=== PATIENT | female | born 1975 | race American Indian/Alaskan Native ===

== ENCOUNTER 2016-08-18 08:19 | Emergency (ER) | payer BC ==
[2016-08-18] MEDS ORDERED: TORADOL IM ONE (10:28)
[2016-08-18] MEDS ORDERED: VALIUM PO ONE (10:28)
--- NOTE | 2016-08-18 11:03 | XRay Report ---
Right shoulder 3 views: History: Pain. Findings: The a.c. joint and glenohumeral joint appears normal. No fracture, dislocation or soft tissue calcification. Impression: Essentially negative right shoulder.
[2016-08-18] MEDS ORDERED: CATAPRES PO ONE (11:39)
[2016-08-18 13:25] VITALS: BP 148/86
--- NOTE | 2016-08-18 13:32 | Emergency Department Report ---
Entered by MICHELLE STARR, acting as scribe for DANIEL LAGUNAS PA. Upper Extremity - HPI Chief Complaint: Extremity Injury, Upper Stated Complaint: RT UPPER ARM PAIN Time Seen by Provider: 08/18/16 10:20 Upper Extremity: Right Shoulder (pain) Occurred When: >5 Days (2 weeks ago, worse today) Mechanism: Other (unknown, patient denies repetitive reaching movements, acute trauma or fall) Severity: severe (8/10 pain, constant and cramping) Symptoms: Yes Pain with Movement, Yes Limited Range of Movement, No Deformity, No Numbness, No Weakness, No Swelling, No Bruising/Ecchymosis, No Laceration or Abrasion Other History: 41 y/o female presents to the ED c/o right shoulder area pain beginning 2 weeks ago and worsening today. The pain is characterized as constant and aching, 8/10 severity. The symptoms are aggravated by lying on the right side and movement, with no alleviation from OTC aleve. Associated symptoms of shaking of the right upper extremity with writing, but she denies numbness and weakness of the right upper extremity. She denies repetitive arm raising and denies acute fall or trauma. Positive for history of hypertension. Patient states that she is currently taking nifedipine, Tenoretic and hydralazine. With her last dose of nifedipine and Tenoretic being at 0400 hours today. She states her blood pressure is usually elevated to approximately 220/120 and she has an appointment with her primary care in a week to discuss medication dosage. Patient denies chest pain, shortness of breath, visual changes, dizziness, confusion, headache. ED Review of Systems ROS: Stated complaint: RT ARM PAIN Other details as noted in HPI Comment: All other systems reviewed and negative Musculoskeletal: other (right shoulder pain, radiates down to the right elbow, shaking of the right extremity with writing) Neurological: denies: weakness, numbness ED Past Medical Hx - Past Medical History Hx Hypertension: Yes Hx GERD: Yes Hx Headaches / Migraines: Yes Additional medical history: GERD - Surgical History Hx Cholecystectomy: Yes Hx Appendectomy: Yes Additional Surgical History: trach s/p ruptured appendex - Social History Smoking Status: Never Smoker Substance Use Type: None - Medications Home Medications: Home Medications Medication Instructions Recorded Confirmed Last Taken Type Atenolol/Chlorthalidone [Tenoretic 1 tab PO QDAY 08/18/16 08/18/16 08/18/16 History 100-25] NIFEdipine [Nifedipine ER] 90 mg PO DAILY 08/18/16 08/18/16 08/18/16 History Naproxen [Naprosyn] 500 mg PO BID #30 tablet 08/18/16 Unknown Rx methOCARBAMOL [Robaxin TAB] 500 mg PO BID #20 tab 08/18/16 Unknown Rx Upper Extremity Exam - Exam General: Vital signs noted. No distress. Alert and acting appropriately. GENERAL : The patient is well-developed and well-nourished, Patient is in NAD HEAD: Normocephalic. Atraumatic. CHEST/LUNGS: Clear to auscultation throughout. HEART/CARDIOVASCULAR: Regular rate and rhythm. No murmurs, rubs, or gallops. ABDOMEN: Abdomen is soft, nontender. No guarding or rebound tenderness. NEURO: ALert and oriented x3. Symmetrical sensation. Shoulder Exam: Yes Shoulder Tenderness (right shoulder joint), No Normal Range of Motion in Shoulder (limited due to pain, patient wearing sling on the RUE on arrival) Elbow: Yes Normal Range of Motion in Elbow (right elbow) Wrist: Yes Normal ROM in Wrist (right wrist) Hand: Yes Normal ROM in Digit(s) (right hand digits) CMS Exam: Yes Normal Distal Pulses (right distal pulses intact), Yes Normal Capillary Refill (capillary refill less than two seconds), Yes Normal Distal Sensation (bilateral upper extremities) ED Course Vital Signs 08/18/16 08:23 Temperature 98.2 F Pulse Rate 100 H Respiratory 19 Rate Blood Pressure 196/106 O2 Sat by Pulse 100 Oximetry - Reevaluation(s) Reevaluation #1: 08/18/16 11:43 Discussed patient's history and physical with Dr. Coyle. He agrees with administration of clonidine 0.2mg and recommended against cardiac work up at this time. ED Medical Decision Making - Lab Data Vital Signs 08/18/16 08/18/16 08/18/16 08:23 10:56 11:23 Temperature 98.2 F 98.2 F Pulse Rate 100 H 93 H Respiratory 19 20 18 Rate Blood Pressure 196/106 Blood Pressure 181/127 [Left] O2 Sat by Pulse 100 98 Oximetry 08/18/16 08/18/16 11:45 13:24 Temperature Pulse Rate 93 H 89 Respiratory 18 Rate Blood Pressure 181/127 Blood Pressure 148/86 [Left] O2 Sat by Pulse 100 Oximetry - Medical Decision Making 41 y/o female presents complaining of right shoulder area pain beginning 2 weeks ago and worsening today. Patient reports symptomatic relief post Valium and Toradol. She was given clonidine 0.2 mg for her elevated blood pressure level, her blood pressure is 148/86 post medication. Emphasized the importance of follow up with primary care physician and explained to patient that uncontrolled hypertension can lead to long-term complications of hypertension/ elevated blood pressure including stroke, heart attack, disability, , paralysis, permanent loss of quality of life. Patient expressed understanding. Referral for orthopedic has been provided. Patient is in no acute distress at this time. She will be discharged home and is encouraged to follow up with a primary care provider. She will be sent home on Robaxin, naproxen and is encouraged to return to the emergency room for any worsening symptoms. Critical care attestation.: If time is entered above; I have spent that time in minutes in the direct care of this critically ill patient, excluding procedure time. ED Disposition Clinical Impression: Shoulder pain Qualifiers: Laterality: right Chronicity: acute Qualified Code(s): M25.511 - Pain in right shoulder HTN (hypertension) Qualifiers: Hypertension type: essential hypertension Qualified Code(s): I10 - Essential ( primary) hypertension Disposition: DISCHARGED TO HOME OR SELFCARE Is pt being admited?: No Does the pt Need Aspirin: No Condition: Stable Instructions: Shoulder Sprain (ED), Hypertension (ED), Arthralgia (ED) Additional Instructions: Follow-up with primary care provider. Return to the emergency department if symptoms worsen. Prescriptions: methOCARBAMOL [Robaxin TAB] 500 mg PO BID #20 tab Naproxen [Naprosyn] 500 mg PO BID #30 tablet Referrals: PRIMARY CARE, [Primary Care Provider] - 3-5 Days JCARLOS YOU MD [Staff Physician] - 3-5 Days SURAJ LUCAS MD [Staff Physician] - 3-5 Days Forms: Work/School Release Form(ED) Time of Disposition: 11:15 This documentation as recorded by the RO hawkins REBEKAH,accurately reflects the service I personally performed and the decisions made by ,DANIEL LAGUNAS PA.
== END 2016-08-18 14:07 | disposition home or self-care (01) ==
LOC: ED 08:19
DX: M25.511 Pain in right shoulder (principal); I10 Essential (primary) hypertension; K21.9 Gastro-esophageal reflux disease without esophagitis; G43.909 Migraine, unspecified, not intractable, without status migrainosus; Z90.49 Acquired absence of other specified parts of digestive tract
CPT/HCPCS: 73030; 96372; 99283; J1885

== ENCOUNTER 2016-12-25 18:18 | Emergency (ER) | payer BC ==
[2016-12-25 18:40] VITALS: BP 156/100
[2016-12-25] MEDS ORDERED: TYLENOL PO ONE (18:42)
--- NOTE | 2016-12-25 19:10 | Emergency Department Report ---
Entered by HA CRYSTAL, acting as scribe for DAVIDSON CURRAN PA. Chief Complaint: Headache Stated Complaint: HEADACHE/POSS ELEVATED BP Time Seen by Provider: 12/25/16 18:44 - HPI History of Present Illness: Pt c/o 11/11, sharp gradually worsening posterior headache for 2 weeks. Pt states she was seen by her PCP last week and he added clonidine back to her medication regime to control her headache and blood pressure. Notes the medication is not relieving her headache Reports fatigue. Denies neck pain and neck stiffness. Denies chest pain and SOB. Notes she had headache, chest pain, and SOB, and was seen by her PCP who states she had an elevated blood pressure. Denies visual disturbances. Denies nausea and vomiting. PCP is Dr. Parker JETT 12/16/2016 - ROS Review of Systems: All system are negative unless stated in HPI above. - Exam Vital Signs: Vital Signs 12/25/16 18:33 Temperature 98.6 F Pulse Rate 80 Respiratory 16 Rate Blood Pressure 156/100 O2 Sat by Pulse 97 Oximetry Physical Exam: General: well nourished, well developed, 41 year old female in no acute distress and nontoxic in appearance Head: normocephalic, atraumatic. No abrasions, contusions, or lacerations Neck: Supple, no C-spine tenderness, no tracheal deviation. Nontender to palpation. no adenopathy Lungs: Clear to auscultation bilaterally, no rhonchi, wheezes, or rales. Normal work of breathing. No use of accessory muscles Extremities: No CCE. +2 pulses. No neurovascular compromise. No lower extremity swelling or pain. Cardiovascular: S1-S2, regular rate, regular rhythm. No murmurs. Mini-Neuro: No nystagmus. No facial drooping. Negative Romberg. Negative pronator drift. Alert and oriented x 3. Normal gait. Speech is clear and fluid MSE screening note: Focused history and physical exam performed. Due to findings the following was ordered: see below ED Medical Decision Making - Medical Decision Making MDM: Patient screened by provider in triage area. Appropriate protocol initiated. Patient to be seen by MD on main ED side. Patient given Tylenol 975 mg by mouth in triage for headache ED Disposition for MSE Condition: Stable This documentation as recorded by the scribe,HA CRYSTAL,accurately reflects the service I personally performed and the decisions made by me,DAVIDSON CURRAN PA.
[2016-12-25 19:15] LABS: Hematocrit 39.6 % (30.3-42.9); Hemoglobin 12.8 gm/dl (10.1-14.3); Mean Corpuscular HGB Conc 32 % (30-34); Mean Corpuscular Hemoglobin 28 pg (28-32); Mean Corpuscular Volume 86 fl (79-97); Platelet Count 382 K/mm3 (140-440); Red Blood Count 4.61 M/mm3 (3.65-5.03); Red Cell Distribution Width 15.9 % (13.2-15.2); White Blood Count 12.9 K/mm3 (4.5-11.0)
[2016-12-25 19:36] LABS: INR 0.95 (0.87-1.13)
[2016-12-25 19:37] LABS: Partial Thromboplastin Time 30.1 Sec. (24.2-36.6)
[2016-12-25 19:42] LABS: Erythrocyte Sedimentation Rate 17 mm/Hr (0-20)
[2016-12-25 19:51] LABS: Alanine Aminotransferase 12 units/L (7-56); Albumin 4.3 g/dL (3.9-5); Albumin/Globulin Ratio 1.2 %; Alkaline Phosphatase 181 units/L (35-129); Anion Gap 18 mmol/L; BUN/Creatinine Ratio 22.85; Blood Urea Nitrogen 16 mg/dL (7-17); Calcium 9.4 mg/dL (8.4-10.2); Carbon Dioxide 27 mmol/L (22-30); Chloride 95.4 mmol/L (98-107); Glucose 109 mg/dL (65-100); Potassium 4.1 mmol/L (3.6-5.0); Sodium 136 mmol/L (137-145); Total Protein 7.9 g/dL (6.3-8.2)
[2016-12-25 20:02] LABS: Basophils % (Manual) 0 % (0.0-1.8); Blastocytes % (Manual) 0 %
[2016-12-25 20:03] LABS: Anisocytosis 1+; Large Platelets Few; Platelet Estimate Consistent w Auto
[2016-12-25 20:04] LABS: Diff Status Complete
[2016-12-25 20:09] LABS: Bacteria,Urine 1+ /HPF (Negative); Bilirubin,Urine NEG (Negative); Blood,Urine SM (Negative); Ketones,Urine NEG (Negative); Leukocyte Esterase,Urine LG (Negative); Mucus,Urine 2+ /HPF; Nitrite,Urine NEG (Negative); Urobilinogen,Urine < 2.0 mg/dL (<2.0)
--- NOTE | 2016-12-25 20:46 | Cat Scan Report ---
FINAL REPORT EXAM: CT HEAD/BRAIN WO CON HISTORY: Headache TECHNIQUE: CT head without contrast PRIORS: None. FINDINGS: No acute intra-axial or extra-axial hemorrhage is identified. There is no evidence of midline shift or mass effect. The ventricles and sulci are within normal limits. Causey-white matter differentiation is intact. No acute parenchymal abnormalities seen. Bony calvarium is grossly intact. Visualized portions of the mastoids and paranasal sinuses are unremarkable. IMPRESSION: Negative CT head
== END 2016-12-25 20:44 | disposition left against medical advice (07) ==
LOC: ED 18:18
DX: R51 Headache (principal); R07.9 Chest pain, unspecified; R06.02 Shortness of breath; Z53.21 Procedure and treatment not carried out due to patient leaving prior to being seen by health care provider
CPT/HCPCS: 36415; 70450; 80053; 81001; 81025; 85007; 85025; 85610; 85652; 85730

== ENCOUNTER 2017-05-05 12:31 | Emergency (ER) | payer BC ==
[2017-05-05 14:44] LABS: Basophils % (Auto) 0.4 % (0.0-1.8); Eosinophils % (Auto) 2.1 % (0.0-4.3); Mean Corpuscular HGB Conc 32 % (30-34); Mean Corpuscular Hemoglobin 27 pg (28-32); Mean Corpuscular Volume 86 fl (79-97); Platelet Count 360 K/mm3 (140-440); Red Blood Count 4.45 M/mm3 (3.65-5.03); Red Cell Distribution Width 16.3 % (13.2-15.2); White Blood Count 11.1 K/mm3 (4.5-11.0)
[2017-05-05 15:02] LABS: Anion Gap 21 mmol/L; BUN/Creatinine Ratio 14; Blood Urea Nitrogen 7 mg/dL (7-17); Calcium 8.9 mg/dL (8.4-10.2); Carbon Dioxide 25 mmol/L (22-30); Chloride 97.4 mmol/L (98-107); Glucose 160 mg/dL (65-100); Potassium 4.4 mmol/L (3.6-5.0); Sodium 139 mmol/L (137-145)
[2017-05-05] MEDS ORDERED: NORMODYNE IV ONE (17:04)
[2017-05-05] MEDS ORDERED: PERCOCET 5/325 PO ONE (17:05)
--- NOTE | 2017-05-05 17:15 | Emergency Department Report ---
HPI - General Chief Complaint: Headache Time Seen by Provider: 05/05/17 16:47 - HPI HPI: This is a 41-year-old [place] female presents to the emergency department with 2 complaints. First, the patient says that she had a 10 minute period of chest pain last night but that has resolved and has not returned. Prior to chest pain she had some nausea and vomiting but that also has resolved. She felt as if her heart was racing and was having some palpitations at that time as well. Her second complaint is a headache that has been going on for the past week. She does have a history of migraines but says that this feels slightly different as this headache is affecting mostly the posterior half of her head. She tried her migraine medication without any relief. She also has noticed that she has had some elevated blood pressures recently despite being compliant with her medication. No recent travel or sick contacts at home. She has a past medical history of GERD, migraines, hypertension. She has a surgical history of appendectomy and cholecystectomy. She denies any tobacco or illicit drug use or abuse. Despite the headache, the patient denies any vision change, slurred speech or any neurological deficits. ED Past Medical Hx - Past Medical History Hx Hypertension: Yes Hx GERD: Yes Hx Headaches / Migraines: Yes Additional medical history: GERD - Surgical History Hx Cholecystectomy: Yes Hx Appendectomy: Yes Additional Surgical History: trach s/p ruptured appendex - Social History Smoking Status: Never Smoker - Medications Home Medications: Home Medications Medication Instructions Recorded Confirmed Last Taken Type Atenolol/Chlorthalidone [Tenoretic 1 tab PO QDAY 08/18/16 08/18/16 08/18/16 History 100-25] NIFEdipine [Nifedipine ER] 90 mg PO DAILY 08/18/16 08/18/16 08/18/16 History Naproxen [Naprosyn] 500 mg PO BID #30 tablet 08/18/16 Unknown Rx methOCARBAMOL [Robaxin TAB] 500 mg PO BID #20 tab 08/18/16 Unknown Rx cloNIDine [Catapres] 0.1 mg PO BID #60 tablet 05/05/17 Unknown Rx ED Review of Systems ROS: Stated complaint: C/P HEADACHE Other details as noted in HPI Comment: All other systems reviewed and negative Constitutional: denies: chills, fever Eyes: denies: eye pain, eye discharge, vision change ENT: denies: ear pain, throat pain Respiratory: denies: cough, shortness of breath, wheezing Cardiovascular: chest pain (resolved), palpitations (resolved) Gastrointestinal: nausea, vomiting (resolved) Genitourinary: denies: urgency, dysuria, discharge Musculoskeletal: denies: back pain, joint swelling, arthralgia Skin: denies: rash, lesions Neurological: headache. denies: numbness, paresthesias Physical Exam - Physical Exam Vital Signs: Vital Signs 05/05/17 05/05/17 12:41 17:01 Temperature 98.6 F 98.4 F Pulse Rate 106 H 98 H Respiratory 20 20 Rate Blood Pressure 177/93 Blood Pressure 194/109 [Right] O2 Sat by Pulse 98 96 Oximetry Physical Exam: GENERAL: The patient is well-developed well-nourished. HENT: Normocephalic. Atraumatic. Patient has moist mucous membranes. EYES: Extraocular motions are intact. Pupils equal reactive to light bilaterally. No nystagmus. NECK: Supple. Trachea is midline. CHEST/LUNGS: Clear to auscultation. There is no respiratory distress noted. HEART/CARDIOVASCULAR: Regular. There is no tachycardia. There is no murmur. ABDOMEN: Abdomen is soft, nontender. Patient has normal bowel sounds. There is no abdominal distention. Obese habitus. SKIN: Skin is warm and dry. NEURO: The patient is awake, alert, and oriented. The patient is cooperative. The patient has no focal neurologic deficits. The patient has normal speech. Cranial nerves II through XII grossly intact. MUSCULOSKELETAL: There is no tenderness or deformity. There is no limitation range of motion. There is no evidence of acute injury. ED Course Vital Signs 05/05/17 05/05/17 12:41 17:01 Temperature 98.6 F 98.4 F Pulse Rate 106 H 98 H Respiratory 20 20 Rate Blood Pressure 177/93 Blood Pressure 194/109 [Right] O2 Sat by Pulse 98 96 Oximetry ED Medical Decision Making - Lab Data Result diagrams: 05/05/17 14:21 05/05/17 14:21 - EKG Data -: EKG Interpreted by Fl EKG shows normal: sinus rhythm, axis, intervals, QRS complexes (LVH), ST-T waves (T-wave inversions to the lateral leads) Rate: tachycardia (101 bpm) - EKG Data When compared to previous EKG there are: no significant change Interpretation: unchanged when compared t (02/06/16) - Radiology Data Radiology results: report reviewed CT of the head does not show any acute intracranial process including no ischemia, shift, mass, bleeding or skull fracture. - Medical Decision Making This is a 41-year-old female presents to the emergency department with the main complaint of a one-week history of a headache. She was given a single pain pill here and prior to discharge she says that her headache feels much better. However due to the longevity of this headache she had a CT scan of the head done that did not show any acute bleed, shift, mass, ischemia or any other acute process. She had mentioned that she had some chest pain yesterday but it had since resolved and had not come back. Nonetheless she had an EKG that does not show any signs of ST elevation [place] or dysrhythmia. She had negative labs include negative troponin. She does not complain of any shortness of breath and is low on the well's score criteria and negative on the pulmonary embolism rule out criteria. Despite the fact that she does not have any current chest pain and has not since yesterday, the patient is low on the heart score criteria and has a low MELISSA score. She had some elevated blood pressure and did require 2 doses of antihypertensives but eventually it came down to a much more appropriate level. The patient is known that she has been out of her Catapres for a few weeks. Patient appeared safe for discharge home and was encouraged to follow-up with her primary care in the next few days. I refilled her Catapres. We discussed dietary changes to make. She will return to the ER with any worsening of her symptoms or any acute distress. - Differential Diagnosis tension headache, migraine, brain bleed Critical Care Time: No Critical care attestation.: If time is entered above; I have spent that time in minutes in the direct care of this critically ill patient, excluding procedure time. ED Disposition Clinical Impression: Hypertension Qualifiers: Hypertension type: essential hypertension Qualified Code(s): I10 - Essential ( primary) hypertension Headache Qualifiers: Headache type: unspecified Headache chronicity pattern: acute headache Intractability: not intractable Qualified Code(s): R51 - Headache Disposition: DC-01 TO HOME OR SELFCARE Is pt being admited?: No Condition: Stable Instructions: Chest Pain (ED), Acute Headache (ED), Hypertension (ED) Additional Instructions: Please follow-up with your primary care physician in the next few days. Try and stay away from foods that are high in salt and caffeinated products to help with your blood pressure. I have refilled your clonodine. Keep a blood pressure log. I have given you a referral for a local salesperson [employer], Dr. Weir, in order to follow up regarding your previous chest pain he had yesterday. Return to the emergency department with any return of chest pain or any acute distress. Prescriptions: cloNIDine [Catapres] 0.1 mg PO BID #60 tablet Referrals: PRIMARY CAREMD [Primary Care Provider] - 3-5 Days RAE WEIR MD [Staff Physician] - 3-5 Days Time of Disposition: 19:58
--- NOTE | 2017-05-05 18:05 | Cat Scan Report ---
FINAL REPORT PROCEDURE: CT HEAD/BRAIN WO CON TECHNIQUE: Computerized tomography of the head was performed without contrast material. HISTORY: Headache COMPARISON: Unenhanced CT scan of the brain 12/25/2016 FINDINGS: Brain: Brain density appears normal. No evidence of intracranial hemorrhage. No parenchymal hemorrhage, mass lesions or mass effect are seen. No abnormal extraxial fluid collects or masses are seen. Ventricles: Ventricles are normal size and are midline. Bone Windows: No evidence of skull fracture. Paranasal sinuses: Nodular density is seen inferiorly in the right maxillary sinus suggesting mucous retention cyst. Visualized portions of the paranasal sinuses otherwise appear clear. Mastoid air cells: Clear IMPRESSION: No acute abnormalities are seen. Mild paranasal sinus disease as described.
[2017-05-05] MEDS ORDERED: APRESOLINE IV ONE (18:30)
[2017-05-05 19:48] VITALS: BP 153/73
[2017-05-05] MEDS ORDERED: VASOTEC IV ONE (20:00)
== END 2017-05-05 20:02 | disposition home or self-care (01) ==
LOC: ED 12:31
DX: I10 Essential (primary) hypertension (principal); R51 Headache; K21.9 Gastro-esophageal reflux disease without esophagitis; G43.909 Migraine, unspecified, not intractable, without status migrainosus
CPT/HCPCS: 36415; 70450; 80048; 84484; 84703; 85025; 93005; 93010; 96374; 96375; 99285; J0360

== ENCOUNTER 2017-10-12 11:57 | Inpatient (IN) | payer BC ==
[2017-10-12] MEDS ORDERED: CATAPRES PO ONE (12:26)
[2017-10-12 13:02] LABS: Basophils % (Auto) 0.3 % (0.0-1.8); Eosinophils # (Auto) 0.2 K/mm3 (0.0-0.4); Eosinophils % (Auto) 2.1 % (0.0-4.3); Hematocrit 38.3 % (30.3-42.9); Hemoglobin 12.5 gm/dl (10.1-14.3); Lymphocytes # (Auto) 3.5 K/mm3 (1.2-5.4); Lymphocytes % (Auto) 35.9 % (13.4-35.0); Mean Corpuscular HGB Conc 33 % (30-34); Mean Corpuscular Hemoglobin 28 pg (28-32); Mean Corpuscular Volume 85 fl (79-97); Monocytes # (Auto) 0.5 K/mm3 (0.0-0.8); Monocytes % (Auto) 5.6 % (0.0-7.3); Platelet Count 335 K/mm3 (140-440); Red Blood Count 4.49 M/mm3 (3.65-5.03); Red Cell Distribution Width 16.9 % (13.2-15.2)
[2017-10-12 13:20] LABS: BUN/Creatinine Ratio 18; Blood Urea Nitrogen 7 mg/dL (7-17); Calcium 8.7 mg/dL (8.4-10.2); Hemolysis Index 0
--- NOTE | 2017-10-12 14:38 | XRay Report ---
ROUTINE CHEST, TWO VIEWS: SOB. PA and lateral views demonstrate the heart and mediastinal contour to be of normal size and shape. The lungs are clear and fully expanded and the soft tissues and bony structures are normal. IMPRESSION: Normal study.
[2017-10-12] MEDS ORDERED: ASPIRIN PO ONE (20:44)
--- NOTE | 2017-10-12 20:44 | Emergency Department Report ---
ED Shortness of Breath HPI - General Chief Complaint: High BP Stated Complaint: SOB CHEST PAINS Time Seen by Provider: 10/12/17 20:09 Source: patient Mode of arrival: Ambulatory Limitations: No Limitations - History of Present Illness Initial Comments: 42-year-old female with a past medical history of hypertension, GERD, and other past medical history as per triage presents to hospital complaints of hypertension and progressively worsening dyspnea on exertion times one month. Patient states she supposed take clonidine 0.2 mg 2 times a day addition to her Tenoretic, and nifedipine however, she has only taken a causing in the evening because it makes her too tired as she can't function at work when she takes in the morning. Patient went to her PMDs office and her blood pressure was elevated and due to dyspnea complaint she was sent to the hospital for evaluation. Patient states the dyspnea is worse with exertion and now occurring without rest. She's having intermittent palpitations during episodes and occasional mild dull chest pain. Positive nausea without vomiting or diaphoresis, leg edema, calf tenderness, recent travel, or history of PE/DVT. Patient has never had a stress test. Positive family history (mother) of CAD. PMD: Dr Georgia Brock - Related Data Home Medications Medication Instructions Recorded Confirmed Last Taken Atenolol/Chlorthalidone [Tenoretic 1 tab PO QDAY 08/18/16 08/18/16 08/18/16 100-25] NIFEdipine [Nifedipine ER] 90 mg PO DAILY 08/18/16 08/18/16 08/18/16 Previous Rx's Medication Instructions Recorded Last Taken Type Naproxen [Naprosyn] 500 mg PO BID #30 tablet 08/18/16 Unknown Rx methOCARBAMOL [Robaxin TAB] 500 mg PO BID #20 tab 08/18/16 Unknown Rx cloNIDine [Catapres] 0.1 mg PO BID #60 tablet 05/05/17 Unknown Rx Allergies Allergy/AdvReac Type Severity Reaction Status Date / Time morphine AdvReac Headache Verified 05/05/17 12:41 ED Review of Systems ROS: Stated complaint: SOB CHEST PAINS Other details as noted in HPI Comment: All other systems reviewed and negative ED Past Medical Hx - Past Medical History Previous Medical History?: Yes Hx Hypertension: Yes Hx GERD: Yes Hx Headaches / Migraines: Yes Additional medical history: GERD - Surgical History Hx Cholecystectomy: Yes Hx Appendectomy: Yes Additional Surgical History: trach s/p ruptured appendex - Social History Smoking Status: Never Smoker Substance Use Type: Alcohol - Medications Home Medications: Home Medications Medication Instructions Recorded Confirmed Last Taken Type Atenolol/Chlorthalidone [Tenoretic 1 tab PO QDAY 08/18/16 08/18/16 08/18/16 History 100-25] NIFEdipine [Nifedipine ER] 90 mg PO DAILY 08/18/16 08/18/16 08/18/16 History Naproxen [Naprosyn] 500 mg PO BID #30 tablet 08/18/16 Unknown Rx methOCARBAMOL [Robaxin TAB] 500 mg PO BID #20 tab 08/18/16 Unknown Rx cloNIDine [Catapres] 0.1 mg PO BID #60 tablet 05/05/17 Unknown Rx ED Physical Exam - General Limitations: No Limitations - Other Other exam information: General: No limitations, patient is alert in no acute distress Head exam: Atraumatic, normocephalic Eyes exam: Normal appearance ENT: Moist mucous membrane, normal oropharynx Neck exam: Normal inspection, full range of motion, no meningismus nontender Respiratory exam: Clear to auscultation bilateral, no wheezes, rales, crackles Cardiovascular: Normal rate and rhythm, normal heart sounds, chest wall nontender Abdomen: Soft, nondistended, and nontender, with normal bowel sounds, no rebound, or guarding Extremity: Full range of motion normal inspection no deformity, no calf tenderness or edema Back: Normal Inspection, full range of motion, no tenderness Neurologic: Alert, oriented x3, cranial nerves intact, no motor or sensory deficit Psychiatric: normal affect, normal mood Skin: Warm, dry, intact ED Course Vital Signs 10/12/17 10/12/17 10/12/17 12:02 12:35 15:57 Temperature 98.2 F Pulse Rate 110 H 113 H 94 H Respiratory 16 Rate Blood Pressure 215/120 215/120 Blood Pressure 152/109 [Right] O2 Sat by Pulse 97 99 Oximetry 10/12/17 10/12/17 10/12/17 20:10 20:43 21:47 Temperature Pulse Rate 95 H 88 Respiratory 18 18 Rate Blood Pressure 208/111 Blood Pressure 198/110 [Right] O2 Sat by Pulse 98 98 Oximetry - Reevaluation(s) Reevaluation #1: 10/12/17 21:53 Nitro paste initiated a blood pressure remains elevated. Cardene drip ordered as per hospitalist request. ED Medical Decision Making - Lab Data Result diagrams: 10/12/17 12:50 10/12/17 12:50 Lab Results 10/12/17 10/12/17 10/12/17 Range/Units 12:50 12:50 12:50 WBC 9.7 (4.5-11.0) K/mm3 RBC 4.49 (3.65-5.03) M/mm3 Hgb 12.5 (10.1-14.3) gm/dl Hct 38.3 (30.3-42.9) % MCV 85 (79-97) fl MCH 28 (28-32) pg MCHC 33 (30-34) % RDW 16.9 H (13.2-15.2) % Plt Count 335 (140-440) K/mm3 Lymph % (Auto) 35.9 H (13.4-35.0) % [place] % (Auto) 5.6 (0.0-7.3) % Eos % (Auto) 2.1 (0.0-4.3) % Baso % (Auto) 0.3 (0.0-1.8) % Lymph # 3.5 (1.2-5.4) K/mm3 [place] # 0.5 (0.0-0.8) K/mm3 Eos # 0.2 (0.0-0.4) K/mm3 Baso # 0.0 (0.0-0.1) K/mm3 Seg Neutrophils % 56.1 (40.0-70.0) % Seg Neutrophils # 5.4 (1.8-7.7) K/mm3 D-Dimer (0-234) ng/mlDDU Sodium 135 L (137-145) mmol/L Potassium 3.5 L (3.6-5.0) mmol/L Chloride 95.3 L (98-107) mmol/L Carbon Dioxide 26 (22-30) mmol/L Anion Gap 17 mmol/L BUN 7 (7-17) mg/dL Creatinine 0.4 L (0.7-1.2) mg/dL Estimated GFR > 60 ml/min BUN/Creatinine Ratio 18 % Glucose 110 H (65-100) mg/dL Calcium 8.7 (8.4-10.2) mg/dL Magnesium (1.7-2.3) mg/dL Troponin T (0.00-0.029) ng/mL NT-Pro-B Natriuret Pep (0-450) pg/mL HCG, Qual Negative (Negative) 10/12/17 10/12/17 10/12/17 Range/Units 20:54 20:54 Unknown WBC (4.5-11.0) K/mm3 RBC (3.65-5.03) M/mm3 Hgb (10.1-14.3) gm/dl Hct (30.3-42.9) % MCV (79-97) fl MCH (28-32) pg MCHC (30-34) % RDW (13.2-15.2) % Plt Count (140-440) K/mm3 Lymph % (Auto) (13.4-35.0) % [place] % (Auto) (0.0-7.3) % Eos % (Auto) (0.0-4.3) % Baso % (Auto) (0.0-1.8) % Lymph # (1.2-5.4) K/mm3 [place] # (0.0-0.8) K/mm3 Eos # (0.0-0.4) K/mm3 Baso # (0.0-0.1) K/mm3 Seg Neutrophils % (40.0-70.0) % Seg Neutrophils # (1.8-7.7) K/mm3 D-Dimer < 135.00 (0-234) ng/mlDDU Sodium (137-145) mmol/L Potassium (3.6-5.0) mmol/L Chloride (98-107) mmol/L Carbon Dioxide (22-30) mmol/L Anion Gap mmol/L BUN (7-17) mg/dL Creatinine (0.7-1.2) mg/dL Estimated GFR ml/min BUN/Creatinine Ratio % Glucose (65-100) mg/dL Calcium (8.4-10.2) mg/dL Magnesium 2.00 (1.7-2.3) mg/dL Troponin T < 0.010 (0.00-0.029) ng/mL NT-Pro-B Natriuret Pep (0-450) pg/mL HCG, Qual (Negative) 10/12/17 Range/Units Unknown WBC (4.5-11.0) K/mm3 RBC (3.65-5.03) M/mm3 Hgb (10.1-14.3) gm/dl Hct (30.3-42.9) % MCV (79-97) fl MCH (28-32) pg MCHC (30-34) % RDW (13.2-15.2) % Plt Count (140-440) K/mm3 Lymph % (Auto) (13.4-35.0) % [place] % (Auto) (0.0-7.3) % Eos % (Auto) (0.0-4.3) % Baso % (Auto) (0.0-1.8) % Lymph # (1.2-5.4) K/mm3 [place] # (0.0-0.8) K/mm3 Eos # (0.0-0.4) K/mm3 Baso # (0.0-0.1) K/mm3 Seg Neutrophils % (40.0-70.0) % Seg Neutrophils # (1.8-7.7) K/mm3 D-Dimer (0-234) ng/mlDDU Sodium (137-145) mmol/L Potassium (3.6-5.0) mmol/L Chloride (98-107) mmol/L Carbon Dioxide (22-30) mmol/L Anion Gap mmol/L BUN (7-17) mg/dL Creatinine (0.7-1.2) mg/dL Estimated GFR ml/min BUN/Creatinine Ratio % Glucose (65-100) mg/dL Calcium (8.4-10.2) mg/dL Magnesium (1.7-2.3) mg/dL Troponin T < 0.010 (0.00-0.029) ng/mL NT-Pro-B Natriuret Pep 488.6 H (0-450) pg/mL HCG, Qual (Negative) - EKG Data -: EKG Interpreted by Me EKG shows normal: sinus rhythm, axis (qrs 11), QRS complexes (qrsd 73), ST-T waves Rate: tachycardia (101) - EKG Data When compared to previous EKG there are: no significant change - Radiology Data Radiology results: report reviewed cxr IMPRESSION: Normal study. - Medical Decision Making Patient with uncontrolled hypertension likely due to noncompliance of medication. She has never had a cardiac workup. Given symptoms should be admitted for further cardiac evaluation. In the ED troponin negative 2 and negative d-dimer and low pretest probability. Patient did receive clonidine with reduction of blood pressure still remains high. Nitropaste ordered an aspirin provided. PO kcl given for mild hypokalemia, mag normal cardene drip to be initiated and nitroglycerin paste discontinued once drip started - Differential Diagnosis [place], stable angina, CHF, hypertensive emergency, PE Critical Care Time: No Critical care attestation.: If time is entered above; I have spent that time in minutes in the direct care of this critically ill patient, excluding procedure time. ED Disposition Clinical Impression: Uncontrolled hypertension, Dyspnea, Chest pain, Noncompliance with medication regimen, Hypokalemia Disposition: OP ADMIT IP TO THIS HOSP Is pt being admited?: Yes Does the pt Need Aspirin: Yes Condition: Stable Time of Disposition: 21:43 (Dr Ordonez/hosp)
[2017-10-12] MEDS ORDERED: NITRO-BID 2% TP ONE (21:38)
[2017-10-12] MEDS ORDERED: K-DUR PO ONE (21:43)
[2017-10-12] MEDS ORDERED: CARDENE 50 MG in NACL 0.9% 250ML 230 ML IV SCH (22:00)
[2017-10-12] MEDS ORDERED: SODIUM CHLORIDE FLUSH SYRINGE 10 ML IV PRN (22:40)
[2017-10-12] MEDS ORDERED: TYLENOL PO PRN (22:40)
[2017-10-12] MEDS ORDERED: ZOFRAN IV PRN (22:40)
--- NOTE | 2017-10-12 22:43 | History and Physical Report ---
History of Present Illness Date of examination: 10/12/17 History of present illness: 42-year-old woman with a history of hypertension was sent from her primary care physician office for management of hypertension. Also complaining of chest pain in the epigastric area which she describes as sharp, dull pain, intermittent in nature lasting for 3 minutes, intensity 4/10, no radiation, she cannot take identify exacerbating or relieving factors. Admits to shortness of breath, palpitation, no nausea vomiting, diaphoresis. Patient is supposed to take clonidine twice a day, she only takes it once, usually at night because it makes her sleepy. She has not taken out with other antihypertensives today because she ran out. Review of systems Constitutional: no weight loss, chills Ears, eyes, nose, mouth and throat: no nasal congestion, no nasal discharge, no sinus pressure, no vision change, no red eye. Neck: No neck pain or rigidity. Cardiovascular:+chest pain, palpitations Respiratory: No cough, shortness of breath Gastrointestinal: no abdominal pain, hematochezia Genitourinary : no dysuria, frequency , no hematuria Musculoskeletal: no joint swelling or muscle ache Integumentary: no rash, no pruritis Neurological: no parathesias, no numbness, no focal weakness Endocrine: no cold or heat intolerance, no polyuria or polydipsia Hematologic/Lymphatic: no easy bruising, no easy bleeding, no gland swelling Allergic/Immunologic: no urticaria, no angioedema. PAST MEDICAL HISTORY: hypertension PAST SURGICAL HISTORY: Cholecystectomy, appendectomy SOCIAL HISTORY: Denies alcohol, tobacco, drugs FAMILY HISTORY: Hypertension Medications and Allergies Allergies Allergy/AdvReac Type Severity Reaction Status Date / Time morphine AdvReac Headache Verified 05/05/17 12:41 Home Medications Medication Instructions Recorded Confirmed Last Taken Type Atenolol/Chlorthalidone [Tenoretic 1 tab PO QDAY 08/18/16 10/12/17 08/18/16 History 100-25] NIFEdipine [Nifedipine ER] 90 mg PO DAILY 08/18/16 10/12/17 08/18/16 History Butalb/Acetaminophen/Caffeine 1 cap PO Q6HR PRN 10/12/17 10/13/17 Unknown History [Fioricet 50-300-40 mg CAP] cloNIDine [Catapres] 0.2 mg PO BID 10/12/17 10/12/17 Unknown History traMADol [Ultram] 50 mg PO Q6HR PRN 10/12/17 10/12/17 Unknown History Metoclopramide [Reglan TAB] 10 mg PO BID 10/13/17 10/13/17 Unknown History Active Meds: Active Medications Nicardipine HCl 50 mg/ Sodium (Chloride) 250 mls @ 25 mls/hr IV TITR FOX; Protocol Exam - Physical Exam Narrative exam: Gen. appearance: Patient lying in bed, no apparent distress HEENT: Normocephalic, atraumatic, pupils equally round and reactive to light, extraocular movement intact, and no sclericterus,. No JVD or thyromegaly or nodule,neck supple, no carotid bruit ,mucous membranes moist, no exudate or erythema Heart: S1, S2, regular rate and rhythm Lungs: Clear to auscultation bilaterally, breathing comfortable Abdomen: Positive bowel sounds, nontender, nondistended, no organomegaly Extremity: No edema, cyanosis, clubbing Skin: No rash, nodules, warm, dry Neuro: Oriented 3, cranial nerves II-12 intact, speech is fluent, motor and sensory intact - Constitutional Vitals: Temp Pulse Resp BP Pulse Ox 98.2 F 88 18 208/111 98 10/12/17 12:02 10/12/17 21:47 10/12/17 20:43 10/12/17 21:47 10/12/17 20:43 Results - Labs CBC & Chem 7: 10/12/17 12:50 10/12/17 12:50 Labs: Abnormal lab results 10/12/17 10/12/17 10/12/17 Range/Units 12:50 12:50 Unknown RDW 16.9 H (13.2-15.2) % Lymph % (Auto) 35.9 H (13.4-35.0) % Sodium 135 L (137-145) mmol/L Potassium 3.5 L (3.6-5.0) mmol/L Chloride 95.3 L (98-107) mmol/L Creatinine 0.4 L (0.7-1.2) mg/dL Glucose 110 H (65-100) mg/dL NT-Pro-B Natriuret Pep 488.6 H (0-450) pg/mL - Imaging and Cardiology EKG: image reviewed Chest x-ray: image reviewed Assessment and Plan Assessment Hypertensive urgency, likely Chest few most likely secondary to #1 Plan Admit to medicine The patient will control with IV medication, start Cardene drip Check cardiac enzymes, stress test Consult critical care, start aspirin, morphine DVT prophylaxis
[2017-10-12 23:43] LABS: Creatine Kinase MB 1.5 ng/mL (0.0-4.0)
[2017-10-13] MEDS: PERCOCET 5/325 PO PRN (05:11)
[2017-10-13 05:45] LABS: Creatine Kinase MB 1.6 ng/mL (0.0-4.0)
[2017-10-13 06:28] LABS: Hematocrit 38.7 % (30.3-42.9); Hemoglobin 12.7 gm/dl (10.1-14.3); Mean Corpuscular HGB Conc 33 % (30-34); Mean Corpuscular Hemoglobin 28 pg (28-32); Mean Corpuscular Volume 85 fl (79-97); Mean Platelet Volume 8.5 fl (6-12); Platelet Count 307 K/mm3 (140-440); Red Blood Count 4.54 M/mm3 (3.65-5.03); Red Cell Distribution Width 16.9 % (13.2-15.2)
[2017-10-13 06:29] LABS: Basophils % (Auto) 0.3 % (0.0-1.8); Eosinophils # (Auto) 0.2 K/mm3 (0.0-0.4); Eosinophils % (Auto) 1.6 % (0.0-4.3); Lymphocytes # (Auto) 3.3 K/mm3 (1.2-5.4); Monocytes # (Auto) 0.4 K/mm3 (0.0-0.8)
[2017-10-13] MEDS ORDERED: LEXISCAN IV ONE ×2 (08:25→08:29)
[2017-10-13] MEDS ORDERED: LOVENOX SUB-Q SCH (10:00)
--- NOTE | 2017-10-13 10:51 | Progress Note ---
Assessment and Plan Assessment and plan: 42-year-old woman with a history of hypertension was sent from her primary care physician office for management of hypertension. Also complaining of chest pain in the epigastric area which she describes as sharp, dull pain, intermittent in nature lasting for 3 minutes, intensity 4/10, no radiation, she cannot take identify exacerbating or relieving factors. Admits to shortness of breath, palpitation, no nausea vomiting, diaphoresis. Patient is supposed to take clonidine twice a day, she only takes it once, usually at night because it makes her sleepy. She has not taken out with other antihypertensives today because she ran out. Hypertensive urgency; wean off cardene drip to oral meds; highly doubt that she is compliant with her meds Chest pain most likely due to high BP; will get stress test when BP Is better controlled, acs is ruled out hypokalemia; replete History Interval history: Review of systems Constitutional: No fevers, no malaise, no joint pains CVS: No chest pain, no orthopnea, no dyspnea on exertion, no pedal edema GI: No abdominal pain, no diarrhea, no vomiting, no constipation Respiratory: No shortness of breath, no wheezing, no coughing Hospitalist Physical - Physical exam Narrative exam: General.: Appears well, no distress, nontoxic HEENT: Moist mucous membranes, extraocular muscles intact, no lymphadenopathy Neck: supple Cardiac: S1-S2 heard Lungs: clear to auscultation bilaterally Abdomen: soft , nontender, nondistended, bowel sounds positive Extremities: no edema clubbing or cyanosis Skin: no rash or lesions Neurologic: no gross focal deficits Psych: appropriate behavior, appropriate mood, corporative, judgment intact - Constitutional Vitals: Temp Pulse Resp BP Pulse Ox 99.0 F 110 H 24 157/97 95 10/13/17 08:00 10/13/17 01:30 10/13/17 01:30 10/13/17 02:16 10/13/17 07:43 Results - Labs CBC & Chem 7: 10/13/17 04:54 10/12/17 12:50 Labs: Laboratory Last Values WBC 10.3 K/mm3 (4.5-11.0) 10/13/17 04:54 RBC 4.54 M/mm3 (3.65-5.03) 10/13/17 04:54 Hgb 12.7 gm/dl (10.1-14.3) 10/13/17 04:54 Hct 38.7 % (30.3-42.9) 10/13/17 04:54 MCV 85 fl (79-97) 10/13/17 04:54 MCH 28 pg (28-32) 10/13/17 04:54 MCHC 33 % (30-34) 10/13/17 04:54 RDW 16.9 % (13.2-15.2) H 10/13/17 04:54 Plt Count 307 K/mm3 (140-440) 10/13/17 04:54 Lymph % (Auto) 32.0 % (13.4-35.0) 10/13/17 04:54 [place] % (Auto) 4.0 % (0.0-7.3) 10/13/17 04:54 Eos % (Auto) 1.6 % (0.0-4.3) 10/13/17 04:54 Baso % (Auto) 0.3 % (0.0-1.8) 10/13/17 04:54 Lymph # 3.3 K/mm3 (1.2-5.4) 10/13/17 04:54 [place] # 0.4 K/mm3 (0.0-0.8) 10/13/17 04:54 Eos # 0.2 K/mm3 (0.0-0.4) 10/13/17 04:54 Baso # 0.0 K/mm3 (0.0-0.1) 10/13/17 04:54 Seg Neutrophils % 62.1 % (40.0-70.0) 10/13/17 04:54 Seg Neutrophils # 6.4 K/mm3 (1.8-7.7) 10/13/17 04:54 D-Dimer < 135.00 ng/mlDDU (0-234) 10/12/17 20:54 Sodium 135 mmol/L (137-145) L 10/12/17 12:50 Potassium 3.5 mmol/L (3.6-5.0) L 10/12/17 12:50 Chloride 95.3 mmol/L (98-107) L 10/12/17 12:50 Carbon Dioxide 26 mmol/L (22-30) 10/12/17 12:50 Anion Gap 17 mmol/L 10/12/17 12:50 BUN 7 mg/dL (7-17) 10/12/17 12:50 Creatinine 0.4 mg/dL (0.7-1.2) L 10/12/17 12:50 Estimated GFR > 60 ml/min 10/12/17 12:50 BUN/Creatinine Ratio 18 % 10/12/17 12:50 Glucose 110 mg/dL (65-100) H 10/12/17 12:50 Calcium 8.7 mg/dL (8.4-10.2) 10/12/17 12:50 Magnesium 2.00 mg/dL (1.7-2.3) 10/12/17 Unknown Total Creatine Kinase 95 units/L (30-135) 10/13/17 04:54 CK-MB (CK-2) 1.6 ng/mL (0.0-4.0) 10/13/17 04:54 CK-MB (CK-2) Rel Index 1.6 (0-4) 10/13/17 04:54 Troponin T < 0.010 ng/mL (0.00-0.029) 10/13/17 04:54 NT-Pro-B Natriuret Pep 488.6 pg/mL (0-450) H 10/12/17 Unknown HCG, Qual Negative (Negative) 10/12/17 12:50
[2017-10-13] MEDS ORDERED: ATENOLOL PO SCH (10:52)
[2017-10-13] MEDS ORDERED: NON-FORMULARY (Butalb/Acetaminophen/Caffeine [Fioricet 50-300-40 Mg Cap] 1 CAP) PO PRN (10:52)
[2017-10-13] MEDS ORDERED: ULTRAM PO PRN (10:52)
[2017-10-13] MEDS ORDERED: CHLORTHALIDONE PO SCH (10:52)
[2017-10-13] MEDS: ASPIRIN PO SCH (11:06)
[2017-10-13] MEDS: SODIUM CHLORIDE FLUSH SYRINGE 10 ML IV SCH ×2 (11:07→22:02)
[2017-10-13] MEDS: LOVENOX SUB-Q SCH (11:07)
[2017-10-13] MEDS ORDERED: FIORICET PO PRN (11:19)
[2017-10-13] MEDS: PROCARDIA XL PO SCH (11:29)
[2017-10-13] MEDS: TENORMIN PO SCH (11:29)
[2017-10-13] MEDS: CATAPRES PO SCH ×2 (11:29→22:19)
[2017-10-13] MEDS: REGLAN PO SCH ×2 (12:48→22:00)
[2017-10-13] MEDS: THALITONE PO SCH (12:48)
--- NOTE | 2017-10-13 15:13 | Consultation ---
History of Present Illness Consult date: 10/13/17 Reason for consult: other (uncontrolled hypertension) History of present illness: 42-year-old ([place] female with known history of hypertension was admitted to the hospital after she was found to have extremely elevated blood pressure primary care physician office. Blood pressure in the emergency room was 209/ 111. Patient has sleep apnea on CPAP therapy she reports to be fully compliant. She also report taking a blood pressure medicine a regular basis. Not fully compliant with salt and sodium restriction though. Past History Past Medical History: hypertension, other (sleep apnea on CPAP) Medications and Allergies Allergies Allergy/AdvReac Type Severity Reaction Status Date / Time morphine AdvReac Headache Verified 05/05/17 12:41 Home Medications Medication Instructions Recorded Confirmed Last Taken Type Atenolol/Chlorthalidone [Tenoretic 1 tab PO QDAY 08/18/16 10/12/17 08/18/16 History 100-25] NIFEdipine [Nifedipine ER] 90 mg PO DAILY 08/18/16 10/12/17 08/18/16 History Butalb/Acetaminophen/Caffeine 1 cap PO Q6HR PRN 10/12/17 10/13/17 Unknown History [Fioricet 50-300-40 mg CAP] cloNIDine [Catapres] 0.2 mg PO BID 10/12/17 10/12/17 Unknown History traMADol [Ultram] 50 mg PO Q6HR PRN 10/12/17 10/12/17 Unknown History Metoclopramide [Reglan TAB] 10 mg PO BID 10/13/17 10/13/17 Unknown History Active Meds: Active Medications Acetaminophen (Tylenol) 650 mg PO Q4H PRN PRN Reason: Pain MILD(1-3)/Fever >100.5/HERNANDEZ Acetaminophen/Butalbital/Caffeine (Fioricet) 1 tab PO Q6H PRN PRN Reason: Headache Aspirin (Aspirin) 325 mg PO QDAY [facility] Last Admin: 10/13/17 11:06 Dose: 325 mg Atenolol (Tenormin) 100 mg PO QDAY [facility] Last Admin: 10/13/17 11:29 Dose: 100 mg Chlorthalidone (Thalitone) 25 mg PO QDAY [facility] Last Admin: 10/13/17 12:48 Dose: 25 mg Clonidine HCl (Catapres) 0.2 mg PO BID [facility] Last Admin: 10/13/17 11:29 Dose: 0.2 mg Enoxaparin Sodium (Lovenox) 40 mg SUB-Q QDAY@1000 FOX Last Admin: 10/13/17 11:07 Dose: 40 mg Nicardipine HCl 50 mg/ Sodium (Chloride) 250 mls @ 25 mls/hr IV TITR [facility]; Protocol Last Titration: 10/13/17 07:15 Dose: 0 mg/hr, 0 mls/hr Metoclopramide HCl (Reglan) 10 mg PO BID [facility] Last Admin: 10/13/17 12:48 Dose: 10 mg Nifedipine (Procardia Xl) 90 mg PO QDAY [facility] Last Admin: 10/13/17 11:29 Dose: 90 mg Ondansetron HCl (Zofran) 4 mg IV Q8H PRN PRN Reason: Nausea And Vomiting Oxycodone/Acetaminophen (Percocet 5/325) 1 tab PO Q4H PRN PRN Reason: Pain, Moderate (4-6) Last Admin: 10/13/17 05:11 Dose: 1 tab Sodium Chloride (Sodium Chloride Flush Syringe 10 Ml) 10 ml IV BID [facility] Last Admin: 10/13/17 11:07 Dose: 10 ml Sodium Chloride (Sodium Chloride Flush Syringe 10 Ml) 10 ml IV PRN PRN PRN Reason: LINE FLUSH Tramadol HCl (Ultram) 50 mg PO Q6H PRN PRN Reason: Pain Review of Systems All systems: negative Constitutional: weight gain, chronic headaches Neurological: headaches Physical Examination Vital signs: Vital Signs Temp Pulse BP Pulse Ox 98.2 F 110 H 215/120 97 10/12/17 12:02 10/12/17 12:02 10/12/17 12:02 10/12/17 12:02 General appearance: no acute distress, alert Eyes: non-icteric ENT: oropharynx moist, other (severely crowded, Mallampati class IV) Neck: supple, no JVD Effort: normal Ascultation: Bilateral: clear Cardiovascular: regular rate and rhythm Gastrointestinal: normoactive bowel sounds, soft, non-tender, other (obese) Integumentary: normal Extremities: no cyanosis, no edema, pink and warm Musculoskeletal: no deformities normal mental status, non-focal exam mood appropriate Results - Laboratory Findings CBC and BMP: 10/13/17 04:54 10/12/17 12:50 PT/INR, D-dimer D-Dimer < 135.00 ng/mlDDU (0-234) 10/12/17 20:54 Abnormal lab findings: Abnormal Labs 10/12/17 10/12/17 10/12/17 12:50 12:50 Unknown RDW 16.9 H Lymph % (Auto) 35.9 H Sodium 135 L Potassium 3.5 L Chloride 95.3 L Creatinine 0.4 L Glucose 110 H NT-Pro-B Natriuret Pep 488.6 H 10/13/17 04:54 RDW 16.9 H Lymph % (Auto) Sodium Potassium Chloride Creatinine Glucose NT-Pro-B Natriuret Pep - Diagnostic Findings Chest x-ray: image reviewed (normal chest x-ray) Assessment and Plan Impression: Hypertensive urgency Obstructive sleep apnea on CPAP therapy Obesity. Recommendation: Wean off IV antihypertensive medications Continue with oral antihypertensive medicati including Procardia. Recommended to continue use CPAP therapy on a regular basis. Salt and sodium restriction was ordered. Patient at this time seems to have improved and will be considered for transfer out of ICU Total critical care time 31 minute
[2017-10-14] MEDS ORDERED: LEXISCAN IV ONE ×2 (08:21→08:29)
[2017-10-14] MEDS: REGLAN PO SCH ×2 (13:15→22:07)
[2017-10-14] MEDS: TENORMIN PO SCH (13:15)
[2017-10-14] MEDS: ASPIRIN PO SCH (13:16)
[2017-10-14] MEDS: PROCARDIA XL PO SCH (13:17)
[2017-10-14] MEDS: SODIUM CHLORIDE FLUSH SYRINGE 10 ML IV SCH ×2 (13:17→22:08)
[2017-10-14] MEDS: LOVENOX SUB-Q SCH (13:17)
[2017-10-14] MEDS: CATAPRES PO SCH (13:17)
[2017-10-14] MEDS: THALITONE PO SCH (13:18)
--- NOTE | 2017-10-14 13:51 | Progress Note ---
Hospitalist Physical - Constitutional Vitals: Temp Pulse Resp BP Pulse Ox 98.2 F 94 H 16 152/74 95 10/14/17 08:11 10/14/17 13:15 10/14/17 08:11 10/14/17 13:15 10/14/17 08:11 Results - Labs CBC & Chem 7: 10/13/17 04:54 10/12/17 12:50 Labs: Laboratory Last Values WBC 10.3 K/mm3 (4.5-11.0) 10/13/17 04:54 RBC 4.54 M/mm3 (3.65-5.03) 10/13/17 04:54 Hgb 12.7 gm/dl (10.1-14.3) 10/13/17 04:54 Hct 38.7 % (30.3-42.9) 10/13/17 04:54 MCV 85 fl (79-97) 10/13/17 04:54 MCH 28 pg (28-32) 10/13/17 04:54 MCHC 33 % (30-34) 10/13/17 04:54 RDW 16.9 % (13.2-15.2) H 10/13/17 04:54 Plt Count 307 K/mm3 (140-440) 10/13/17 04:54 Lymph % (Auto) 32.0 % (13.4-35.0) 10/13/17 04:54 [place] % (Auto) 4.0 % (0.0-7.3) 10/13/17 04:54 Eos % (Auto) 1.6 % (0.0-4.3) 10/13/17 04:54 Baso % (Auto) 0.3 % (0.0-1.8) 10/13/17 04:54 Lymph # 3.3 K/mm3 (1.2-5.4) 10/13/17 04:54 [place] # 0.4 K/mm3 (0.0-0.8) 10/13/17 04:54 Eos # 0.2 K/mm3 (0.0-0.4) 10/13/17 04:54 Baso # 0.0 K/mm3 (0.0-0.1) 10/13/17 04:54 Seg Neutrophils % 62.1 % (40.0-70.0) 10/13/17 04:54 Seg Neutrophils # 6.4 K/mm3 (1.8-7.7) 10/13/17 04:54 D-Dimer < 135.00 ng/mlDDU (0-234) 10/12/17 20:54 Sodium 135 mmol/L (137-145) L 10/12/17 12:50 Potassium 3.5 mmol/L (3.6-5.0) L 10/12/17 12:50 Chloride 95.3 mmol/L (98-107) L 10/12/17 12:50 Carbon Dioxide 26 mmol/L (22-30) 10/12/17 12:50 Anion Gap 17 mmol/L 10/12/17 12:50 BUN 7 mg/dL (7-17) 10/12/17 12:50 Creatinine 0.4 mg/dL (0.7-1.2) L 10/12/17 12:50 Estimated GFR > 60 ml/min 10/12/17 12:50 BUN/Creatinine Ratio 18 % 10/12/17 12:50 Glucose 110 mg/dL (65-100) H 10/12/17 12:50 Calcium 8.7 mg/dL (8.4-10.2) 10/12/17 12:50 Magnesium 2.00 mg/dL (1.7-2.3) 10/12/17 Unknown Total Creatine Kinase 95 units/L (30-135) 10/13/17 04:54 CK-MB (CK-2) 1.6 ng/mL (0.0-4.0) 10/13/17 04:54 CK-MB (CK-2) Rel Index 1.6 (0-4) 10/13/17 04:54 Troponin T < 0.010 ng/mL (0.00-0.029) 10/13/17 04:54 NT-Pro-B Natriuret Pep 488.6 pg/mL (0-450) H 10/12/17 Unknown HCG, Qual Negative (Negative) 10/12/17 12:50
--- NOTE | 2017-10-14 15:46 | Progress Note ---
Assessment and Plan Impression: Hypertensive urgency, improving Obstructive sleep apnea on CPAP therapy Obesity. Recommendation: Continue with oral antihypertensive medicati including Procardia. Recommended to continue use CPAP therapy on a regular basis. Salt and sodium restriction was explained Subjective Date of service: 10/14/17 Interval history: Patient doing well underwent stress test this morning. Patient has history of insomnia and sleep apnea. Patient uses CPAP regularly. However she does take Restoril on a nightly basis. Objective Vital Signs - 12hr 10/14/17 10/14/17 10/14/17 06:03 08:11 10:00 Temperature 98 F 98.2 F Pulse Rate 81 85 78 Respiratory 18 16 Rate Blood Pressure 133/71 Blood Pressure 129/63 [Right] O2 Sat by Pulse 96 95 Oximetry 10/14/17 10/14/17 10/14/17 11:55 12:09 12:10 Temperature Pulse Rate 79 105 H 114 H Respiratory Rate Blood Pressure 147/97 179/92 172/97 Blood Pressure [Right] O2 Sat by Pulse Oximetry 10/14/17 10/14/17 10/14/17 12:11 12:12 12:13 Temperature Pulse Rate 109 H 108 H 104 H Respiratory Rate Blood Pressure 165/94 176/88 166/87 Blood Pressure [Right] O2 Sat by Pulse Oximetry 10/14/17 10/14/17 12:14 13:15 Temperature Pulse Rate 100 H 94 H Respiratory Rate Blood Pressure 160/93 152/74 Blood Pressure [Right] O2 Sat by Pulse Oximetry Constitutional: no acute distress, alert Eyes: non-icteric ENT: oropharynx moist, other (severely crowded, Mallampati class IV) Neck: supple, no JVD Effort: normal Ascultation: Bilateral: clear Cardiovascular: regular rate and rhythm Gastrointestinal: normoactive bowel sounds, soft, non-tender, other (obese) Integumentary: normal Extremities: no cyanosis, no edema, pink and warm Neurologic: normal mental status, non-focal exam Psychiatric: mood appropriate CBC and BMP: 10/13/17 04:54 10/12/17 12:50 ABG, PT/INR, D-dimer: PT/INR, D-dimer D-Dimer < 135.00 ng/mlDDU (0-234) 10/12/17 20:54 Abnormal lab findings: Abnormal Labs 10/12/17 10/12/17 10/12/17 12:50 12:50 Unknown RDW 16.9 H Lymph % (Auto) 35.9 H Sodium 135 L Potassium 3.5 L Chloride 95.3 L Creatinine 0.4 L Glucose 110 H NT-Pro-B Natriuret Pep 488.6 H 10/13/17 04:54 RDW 16.9 H Lymph % (Auto) Sodium Potassium Chloride Creatinine Glucose NT-Pro-B Natriuret Pep
--- NOTE | 2017-10-14 15:58 | Consultation ---
History of Present Illness Consult date: 10/14/17 Requesting physician: BYRON AMADOR Consult reason: other (abnormal stress test) History of present illness: The patient has a history of hypertension. She claims that she visited her PMD on the day of admission and was noted to have severely elevated BP. As such, she was sent to the hospital for evaluation. The patient admits to chronic exertional dyspnea but no orthopnea or PND. She denies chest pain. She claims that she has palpitations intermittently. She also indicated that she takes clonidine twice daily at home. However, she feels groggy with the morning dose and as such has been omitting it. Today, she underwent a pharmacologic stress MPI which was technically suboptimal in quality. It revealed fixed apical, anterior and inferior defects as well as a small reversible inferolateral defect suggestive of mild ischemia. Gated SPECT imaging revealed an ejection fraction of 44%. Past History Past Medical History: hypertension, other (sleep apnea on CPAP) Past Surgical History: appendectomy, cholecystectomy, Other (history of tracheostomy) Social history: denies: smoking, alcohol abuse Family history: denies: CAD Medications and Allergies Allergies Allergy/AdvReac Type Severity Reaction Status Date / Time morphine AdvReac Headache Verified 05/05/17 12:41 Home Medications Medication Instructions Recorded Confirmed Last Taken Type Butalb/Acetaminophen/Caffeine 1 cap PO Q6HR PRN 10/12/17 10/13/17 Unknown History [Fioricet 50-300-40 mg CAP] Metoclopramide [Reglan TAB] 10 mg PO BID 10/13/17 10/13/17 Unknown History Aspirin EC [Aspirin Enteric Coated 81 mg PO QDAY #30 tablet. 10/14/17 Unknown Rx TAB] Atenolol/Chlorthalidone [Tenoretic 1 tab PO QDAY #90 tablet 10/14/17 Unknown Rx 100-25] Carvedilol [Coreg] 6.25 mg PO BID #60 tablet 10/14/17 Unknown Rx NIFEdipine XL [Procardia Xl] 90 mg PO QDAY #90 tablet 10/14/17 Unknown Rx cloNIDine [Catapres] 0.1 mg PO BID #60 tablet 10/14/17 Unknown Rx cloNIDine [Catapres] 0.2 mg PO BID #60 tablet 10/14/17 Unknown Rx traMADol [Ultram 50 MG tab] 50 mg PO Q6HR PRN #10 tablet 10/14/17 Unknown Rx Active Meds: Active Medications Acetaminophen (Tylenol) 650 mg PO Q4H PRN PRN Reason: Pain MILD(1-3)/Fever >100.5/HERNANDEZ Acetaminophen/Butalbital/Caffeine (Fioricet) 1 tab PO Q6H PRN PRN Reason: Headache Aspirin (Aspirin) 325 mg PO QDAY [facility] Last Admin: 10/14/17 13:16 Dose: 325 mg Atenolol (Tenormin) 100 mg PO QDAY [facility] Last Admin: 10/14/17 13:15 Dose: 100 mg Chlorthalidone (Thalitone) 25 mg PO QDAY [facility] Last Admin: 10/14/17 13:18 Dose: Not Given Clonidine HCl (Catapres) 0.2 mg PO BID [facility] Last Admin: 10/14/17 13:17 Dose: 0.2 mg Enoxaparin Sodium (Lovenox) 40 mg SUB-Q QDAY@1000 [facility] Last Admin: 10/14/17 13:17 Dose: 40 mg Nicardipine HCl 50 mg/ Sodium (Chloride) 250 mls @ 25 mls/hr IV TITR [facility]; Protocol Last Titration: 10/13/17 07:15 Dose: 0 mg/hr, 0 mls/hr Metoclopramide HCl (Reglan) 10 mg PO BID [facility] Last Admin: 10/14/17 13:15 Dose: 10 mg Nifedipine (Procardia Xl) 90 mg PO QDAY [facility] Last Admin: 10/14/17 13:17 Dose: 90 mg Ondansetron HCl (Zofran) 4 mg IV Q8H PRN PRN Reason: Nausea And Vomiting Oxycodone/Acetaminophen (Percocet 5/325) 1 tab PO Q4H PRN PRN Reason: Pain, Moderate (4-6) Last Admin: 10/13/17 05:11 Dose: 1 tab Sodium Chloride (Sodium Chloride Flush Syringe 10 Ml) 10 ml IV BID [facility] Last Admin: 10/14/17 13:17 Dose: 10 ml Sodium Chloride (Sodium Chloride Flush Syringe 10 Ml) 10 ml IV PRN PRN PRN Reason: LINE FLUSH Tramadol HCl (Ultram) 50 mg PO Q6H PRN PRN Reason: Pain Last Admin: 10/13/17 22:06 Dose: 50 mg Review of Systems Constitutional: no fever, no chills Ears, nose, mouth and throat: no ear pain, no ear discharge, no hoarseness Cardiovascular: palpitations, shortness of breath, dyspnea on exertion, no chest pain, no orthopnea, no edema Respiratory: dyspnea on exertion, no cough, no hemoptysis Gastrointestinal: no abdominal pain, no nausea, no vomiting, no diarrhea, no constipation Genitourinary Female: no dysuria, no urinary frequency Rectal: no pain, no bleeding Musculoskeletal: no neck stiffness, no neck pain Integumentary: no rash, no pruritis Neurological: no weakness, no parathesias, no headaches Endocrine: no cold intolerance, no heat intolerance Hematologic/Lymphatic: no easy bruising, no easy bleeding Allergic/Immunologic: no urticaria, no wheezing Physical Examination Vital Signs Last Vital Signs Temp 98.2 F 10/14/17 08:11 Pulse 94 H 10/14/17 13:15 Resp 16 10/14/17 08:11 BP 152/74 10/14/17 13:15 Pulse Ox 95 10/14/17 08:11 General appearance: no acute distress HEENT: Positive: EOMI, Normocephaly, Mucus Membranes Moist Neck: Positive: neck supple, trachea midline Cardiac: Positive: Reg Rate and Rhythm, S1/S2 Lungs: Positive: clear to auscultation Neuro: Positive: Grossly Intact Abdomen: Positive: Soft, Active Bowel Sounds. Negative: Tender Skin: Positive: Clear. Negative: Rash Musculoskeletal: Normal Range of Motion Extremities: Present: normal. Absent: edema Results 10/13/17 04:54 10/12/17 12:50 - Imaging and Cardiology EKG: image reviewed EKG interpretations - Telemetry EKG Rhythm: Sinus Tachycardia - EKG Sinus rhythms and dysrhythmias: sinus tachycardia Chamber hypertrophy or enlargement: left ventricular hypertro Assessment and Plan With only mild ischemia noted on her stress test and absence of chest pain, it will be managed medically. However, due to LV systolic dysfunction suggested on gated SPECT imaging, echocardiogram will be obtained. I will change clonidine to nightly for tolerance and optimize her antihypertensive regimen. After echocardiogram is performed and assessed, she will be discharged tomorrow to follow-up as an outpatient. - Patient Problems (1) Hypertensive urgency Current Visit: Yes Status: Acute (2) Exertional dyspnea Current Visit: Yes Status: Chronic (3) Left ventricular systolic dysfunction Current Visit: Yes Status: Acute (4) Abnormal nuclear stress test Current Visit: Yes Status: Acute (5) Obstructive sleep apnea Current Visit: Yes Status: Chronic (6) Morbid obesity Current Visit: Yes Status: Chronic
--- NOTE | 2017-10-14 16:01 | Treadmill Report ---
LEXISCAN STRESS TEST REPORT REASON FOR STUDY: Chest pain. STRESS TEST PROTOCOL: The patient received 0.4 mg of Lexiscan intravenously over 10 seconds. Technetium-99m tetrofosmin was subsequently injected. Baseline EKG, normal sinus rhythm with left ventricular hypertrophy. Lexiscan EKG, no diagnostic ischemic changes. No chest pain. No arrhythmias. IMPRESSION: Electrocardiographically negative stress test. Nuclear imaging report to follow. [facility]# [id number] AGO/NTS
--- NOTE | 2017-10-14 17:51 | Treadmill Report ---
THALLIUM REPORT REASON FOR STUDY: Chest pain. IMAGING PROTOCOL: The patient received 10 mCi of technitium-99m Tetrofosmin for rest imaging, and 28 mCi of technitium-99m Tetrofosmin for stress imaging. Imaging for all procedures was completed 30-90 minutes following the initial injection of technetium-99m Tetrofosmin. SPECT imaging in the 180 degree arc was performed in the right anterior oblique projection. Computerized reconstruction of the images was performed for analysis. NUCLEAR IMAGING RESULTS: Technically suboptimal study due to significant soft tissue attenuation artifact. Normal left ventricular cavity size with no change from stress to rest. Distribution of radionuclide within the left ventricle revealed a medium to large area of photo-induction involving the apex and anterior wall. The degree of photo-induction is moderate. Rest imaging does not show any significant improvement in this defect. In addition, there is a medium sized area of photo-induction involving the inferior wall. The degree of photo-induction is moderate. Rest imaging does not show any significant improvement in this defect. There is also a small area of photo-induction involving the inferolateral wall. The degree of photo-induction is moderate. Rest imaging showed almost complete improvement in this defect. Gated SPECT imaging revealed mild global left ventricular systolic dysfunction. The calculated left ventricular ejection fraction is 44%. IMPRESSION: Technically suboptimal study. [id number] fixed apical and anterior defect. Medium sized fixed inferior wall defect. Small reversible inferolateral defect. Mild global left ventricular systolic dysfunction. EF 44%. These findings suggest prior infarction involving the left anterior descending and right coronary artery territories. In addition, there is suggestion of mild reversible ischemia in the left circumflex coronary artery territory. Clinical correlation is highly recommended due to the technical quality of this study. JOB# [id number] YEIMI/NTS
[2017-10-14] MEDS: APRESOLINE PO SCH ×2 (18:33→22:10)
[2017-10-14] MEDS ORDERED: CATAPRES PO SCH (22:00)
[2017-10-14] MEDS: COREG PO SCH (22:07)
[2017-10-15] MEDS: APRESOLINE PO SCH ×2 (08:05→14:24)
[2017-10-15] MEDS: PERCOCET 5/325 PO PRN ×3 (08:05→18:50)
[2017-10-15] MEDS: COREG PO SCH (11:16)
[2017-10-15] MEDS: LOVENOX SUB-Q SCH (11:16)
[2017-10-15] MEDS: PROCARDIA XL PO SCH (11:16)
[2017-10-15] MEDS: ASPIRIN PO SCH (11:16)
[2017-10-15] MEDS: REGLAN PO SCH (11:16)
[2017-10-15] MEDS: THALITONE PO SCH (11:17)
[2017-10-15] MEDS: SODIUM CHLORIDE FLUSH SYRINGE 10 ML IV SCH (11:18)
--- NOTE | 2017-10-15 12:23 | Progress Note ---
Hospitalist Physical - Constitutional Vitals: Temp Pulse Resp BP Pulse Ox 98.1 F 81 18 107/60 93 10/15/17 03:53 10/15/17 03:53 10/15/17 03:53 10/15/17 03:53 10/15/17 03:53 General appearance: Present: no acute distress Results - Labs CBC & Chem 7: 10/13/17 04:54 10/12/17 12:50 Labs: Laboratory Last Values WBC 10.3 K/mm3 (4.5-11.0) 10/13/17 04:54 RBC 4.54 M/mm3 (3.65-5.03) 10/13/17 04:54 Hgb 12.7 gm/dl (10.1-14.3) 10/13/17 04:54 Hct 38.7 % (30.3-42.9) 10/13/17 04:54 MCV 85 fl (79-97) 10/13/17 04:54 MCH 28 pg (28-32) 10/13/17 04:54 MCHC 33 % (30-34) 10/13/17 04:54 RDW 16.9 % (13.2-15.2) H 10/13/17 04:54 Plt Count 307 K/mm3 (140-440) 10/13/17 04:54 Lymph % (Auto) 32.0 % (13.4-35.0) 10/13/17 04:54 [place] % (Auto) 4.0 % (0.0-7.3) 10/13/17 04:54 Eos % (Auto) 1.6 % (0.0-4.3) 10/13/17 04:54 Baso % (Auto) 0.3 % (0.0-1.8) 10/13/17 04:54 Lymph # 3.3 K/mm3 (1.2-5.4) 10/13/17 04:54 [place] # 0.4 K/mm3 (0.0-0.8) 10/13/17 04:54 Eos # 0.2 K/mm3 (0.0-0.4) 10/13/17 04:54 Baso # 0.0 K/mm3 (0.0-0.1) 10/13/17 04:54 Seg Neutrophils % 62.1 % (40.0-70.0) 10/13/17 04:54 Seg Neutrophils # 6.4 K/mm3 (1.8-7.7) 10/13/17 04:54 D-Dimer < 135.00 ng/mlDDU (0-234) 10/12/17 20:54 Sodium 135 mmol/L (137-145) L 10/12/17 12:50 Potassium 3.5 mmol/L (3.6-5.0) L 10/12/17 12:50 Chloride 95.3 mmol/L (98-107) L 10/12/17 12:50 Carbon Dioxide 26 mmol/L (22-30) 10/12/17 12:50 Anion Gap 17 mmol/L 10/12/17 12:50 BUN 7 mg/dL (7-17) 10/12/17 12:50 Creatinine 0.4 mg/dL (0.7-1.2) L 10/12/17 12:50 Estimated GFR > 60 ml/min 10/12/17 12:50 BUN/Creatinine Ratio 18 % 10/12/17 12:50 Glucose 110 mg/dL (65-100) H 10/12/17 12:50 Calcium 8.7 mg/dL (8.4-10.2) 10/12/17 12:50 Magnesium 2.00 mg/dL (1.7-2.3) 10/12/17 Unknown Total Creatine Kinase 95 units/L (30-135) 10/13/17 04:54 CK-MB (CK-2) 1.6 ng/mL (0.0-4.0) 10/13/17 04:54 CK-MB (CK-2) Rel Index 1.6 (0-4) 10/13/17 04:54 Troponin T < 0.010 ng/mL (0.00-0.029) 10/13/17 04:54 NT-Pro-B Natriuret Pep 488.6 pg/mL (0-450) H 10/12/17 Unknown HCG, Qual Negative (Negative) 10/12/17 12:50
--- NOTE | 2017-10-15 14:19 | Progress Note ---
Assessment and Plan Hypertensive urgency, improving Obstructive sleep apnea on CPAP therapy. She follows with Dr. Perdomo at the office Obesity. Recommendation: Continue with oral antihypertensive . Discussed CPAP therapy and relationship with hypertension. She is scheduled to have office follow-up in 3 weeks Salt and sodium restriction was explained DVT prophylaxis Subjective Date of service: 10/15/17 Interval history: Reports no complaints at the present time. Reportedly, waiting for echocardiogram to be performed this afternoon Objective Vital Signs - 12hr 10/15/17 10/15/17 10/15/17 03:53 08:14 10:00 Temperature 98.1 F 98.5 F Pulse Rate 81 77 81 Respiratory 18 18 Rate Blood Pressure 107/60 145/74 O2 Sat by Pulse 93 93 Oximetry Constitutional: no acute distress, alert Eyes: non-icteric ENT: oropharynx moist, other (severely crowded, Mallampati class IV) Neck: supple, no JVD Effort: normal Ascultation: Bilateral: clear Cardiovascular: regular rate and rhythm Gastrointestinal: normoactive bowel sounds, soft, non-tender, other ( morbidly obese) Integumentary: normal Extremities: no cyanosis, no edema, pink and warm Neurologic: normal mental status, non-focal exam Psychiatric: mood appropriate CBC and BMP: 10/13/17 04:54 10/12/17 12:50 ABG, PT/INR, D-dimer: PT/INR, D-dimer D-Dimer < 135.00 ng/mlDDU (0-234) 10/12/17 20:54 Abnormal lab findings: Abnormal Labs 10/12/17 10/12/17 10/12/17 12:50 12:50 Unknown RDW 16.9 H Lymph % (Auto) 35.9 H Sodium 135 L Potassium 3.5 L Chloride 95.3 L Creatinine 0.4 L Glucose 110 H NT-Pro-B Natriuret Pep 488.6 H 10/13/17 04:54 RDW 16.9 H Lymph % (Auto) Sodium Potassium Chloride Creatinine Glucose NT-Pro-B Natriuret Pep
--- NOTE | 2017-10-15 16:08 | Discharge Summary ---
Providers - Providers Date of Admission: 10/12/17 22:40 Attending physician: BYRON AMADOR MD 10/12/17 22:40 Consult to Physician [CONS] Routine Comment: Consulting Provider: DEONTE VAZ Physician Instructions: Reason For Exam: cc 10/14/17 14:54 Consult to Physician [CONS] Routine Comment: added to list per Dr Lorenzana Consulting Provider: ANNA LORENZANA Physician Instructions: Reason For Exam: cp Primary care physician: [place] REPAIR TECHNICIAN Hospitalization Condition: Stable Hospital course: 42-year-old woman who presented with chest pain and elevated blood pressures. She was in hypertensive urgency, she'll admitted to the ICU and treated with a Cardene drip. She was weaned off her oral medications. Patient later admitted that she had missed several doses of clonidine. Since he had run out when she went on vacation. She was counseled on compliance with clonidine and educated about rebound hypertension that happens with this medication. She went on to have a stress test which showed mild disease versus artifact. But reduced ejection fraction was noted. She received cardiology consult, X Discharge diagnoses Chest pain due to hypertensive urgency Chronic systolic CHF Hypertensive urgency Disposition: DC-01 TO HOME OR SELFCARE Time spent for discharge: 33 minutes Core Measure Documentation - Palliative Care Palliative Care/ Comfort Measures: Not Applicable - Core Measures Any of the following diagnoses?: none Exam - Constitutional Vitals: Temp Pulse Resp BP Pulse Ox 98.5 F 81 18 145/74 93 10/15/17 08:14 10/15/17 10:00 10/15/17 08:14 10/15/17 08:14 10/15/17 08:14 General appearance: Present: no acute distress, well-nourished - EENT Eyes: Present: PERRL ENT: hearing intact, clear oral mucosa - Neck Neck: Present: supple, normal ROM - Respiratory Respiratory effort: normal Respiratory: bilateral: CTA - Cardiovascular Heart Sounds: Present: S1 & S2. Absent: rub, click - Extremities Extremities: pulses symmetrical, No edema Peripheral Pulses: within normal limits - Abdominal General gastrointestinal: Present: soft, non-tender, non-distended, normal bowel sounds Female genitourinary: Present: normal - Integumentary Integumentary: Present: clear, warm, dry - Musculoskeletal Musculoskeletal: gait normal, strength equal bilaterally - Psychiatric Psychiatric: appropriate mood/affect, intact judgment & insight - Neurologic Neurologic: CNII-XII intact, moves all extremities Plan Follow up with: ANNA LORENZANA MD [Staff Physician] - 7 Days PRIMARY CARE, [Primary Care Provider] - 3-5 Days Prescriptions: Aspirin EC [Aspirin Enteric Coated TAB] 81 mg PO QDAY #30 tablet. Atenolol/Chlorthalidone [Tenoretic 100-25] 1 tab PO QDAY #90 tablet Carvedilol [Coreg] 6.25 mg PO BID #60 tablet cloNIDine [Catapres] 0.1 mg PO BID #60 tablet cloNIDine [Catapres] 0.2 mg PO BID #60 tablet NIFEdipine XL [Procardia Xl] 90 mg PO QDAY #90 tablet traMADol [Ultram 50 MG tab] 50 mg PO Q6HR PRN #10 tablet PRN Reason: Pain
--- NOTE | 2017-10-15 16:15 | Progress Note ---
<LUIS ENRIQUE HANLEYELLE - Last Filed: 10/15/17 16:21> Assessment and Plan Await echo. Pending echo reveals no gross abnormalities, pt may discharge home from cardiology standpoint. Recommend pt follow up in our office with Dr. Hill within 1-2 weeks of hospital discharge ([phone]). Assessment and plan reviewed with pt at bedside. The patient has been seen in conjunction with Dr. Ayala who agrees with the assessment and plan of care. - Patient Problems (1) Hypertensive urgency Current Visit: Yes Status: Acute (2) Exertional dyspnea Current Visit: Yes Status: Chronic (3) Left ventricular systolic dysfunction Current Visit: Yes Status: Acute (4) Abnormal nuclear stress test Current Visit: Yes Status: Acute (5) Obstructive sleep apnea Current Visit: Yes Status: Chronic (6) Morbid obesity Current Visit: Yes Status: Chronic Subjective Date of service: 10/15/17 Principal diagnosis: HTN Interval history: pt resting comfortably in bed, no current cardiac complaints. Objective Last Vital Signs Temp 98.5 F 10/15/17 08:14 Pulse 81 10/15/17 10:00 Resp 18 10/15/17 08:14 BP 145/74 10/15/17 08:14 Pulse Ox 93 10/15/17 08:14 - Physical Examination General: No Apparent Distress HEENT: Positive: EOMI, Normocephaly, Mucus Membranes Moist Neck: Positive: neck supple, trachea midline Cardiac: Positive: Reg Rate and Rhythm, S1/S2 Lungs: Positive: clear to auscultation Neuro: Positive: Grossly Intact Abdomen: Positive: Soft, Active Bowel Sounds. Negative: Tender Skin: Positive: Clear. Negative: Rash Musculoskeletal: Normal Range of Motion Extremities: Present: normal. Absent: edema - Imaging and Cardiology EKG: image reviewed Echo: pending - Telemetry EKG Rhythm: Sinus Rhythm - EKG Sinus rhythms and dysrhythmias: sinus tachycardia Chamber hypertrophy or enlargement: left ventricular hypertro <CHATO AYALA - Last Filed: 10/15/17 19:05> Objective Vital Signs Temp Pulse Resp BP Pulse Ox 10/15/17 10:00 81 10/15/17 08:14 98.5 F 77 18 145/74 93 10/15/17 03:53 98.1 F 81 18 107/60 93 10/15/17 00:06 98.1 F 82 18 102/53 93 10/14/17 22:00 78 10/14/17 19:58 98.2 F 78 18 134/49 94
[2017-10-15 19:47] VITALS: BP 141/72
== END 2017-10-15 20:02 | disposition home or self-care (01) | DRG 305 ==
LOC: ED 11:57 → CC1 22:40 → 4A 10-13 17:07
PROVIDERS: ADMIT Internal Medicine; ATTEND Internal Medicine
DX: I16.0 Hypertensive urgency (principal); Z68.42 Body mass index [BMI] 45.0-49.9, adult; I50.22 Chronic systolic (congestive) heart failure; K21.9 Gastro-esophageal reflux disease without esophagitis; G43.909 Migraine, unspecified, not intractable, without status migrainosus; I11.0 Hypertensive heart disease with heart failure; E87.6 Hypokalemia; G47.33 Obstructive sleep apnea (adult) (pediatric); R07.9 Chest pain, unspecified; E66.01 Morbid (severe) obesity due to excess calories; Z90.49 Acquired absence of other specified parts of digestive tract; Z82.49 Family history of ischemic heart disease and other diseases of the circulatory system; Z88.5 Allergy status to narcotic agent; Z79.899 Other long term (current) drug therapy; Z79.82 Long term (current) use of aspirin; Z91.14 Patient's other noncompliance with medication regimen
CPT/HCPCS: 36415; 71046; 78452; 80048; 82550; 82553; 83735; 83880; 84484; 84703; 85025; 85379; 93005; 93010; 93017; 93306; A9502; J1650; J2785; J7050

== ENCOUNTER 2017-12-02 13:31 | Emergency (ER) | payer BC ==
--- NOTE | 2017-12-02 14:35 | Emergency Department Report ---
Blank Doc - Documentation Documentation: 42-year-old female with a past medical history hypertension, migraines, anger presents to the Hospital complaining of right-sided sharp chest pain for the past 5 days. Patient started in the anterior chest and moved posterior right thoracic area. Sharp, intermittent, worse with deep inspiration. Pain is rated 3/10 in intensity. She denies shortness of breath, nausea, vomiting, or diaphoresis. Patient states she's been feeling faint, fatigue, having chills but denies fevers or cough. She denies a history of PE/DVT, recent travel, calf tenderness or edema, or control pill use. Patient was admitted here in October 2017 for chest pain and hypertensive urgency and had a stress test performed with a negative d-dimer at that time. She has a scheduled follow-up visit with her director search marketing strategies on December 27. She's been compliant with her medication with the exception of carvedilol and baby aspirin because she ran out. ekg unchanged from previous, no stemi labs ordered: cardiac, mag, ddimer, cbc, bmp, hcg cxr pa/lat Midlevel to follow Pt will need Carvedilol script after d/c She was told Asa 81 mg can be bought over the counter previous med record reviewed
[2017-12-02] MEDS ORDERED: TORADOL IM ONE (14:43)
[2017-12-02 15:09] LABS: Basophils # (Auto) 0.1 K/mm3 (0.0-0.1); Basophils % (Auto) 0.8 % (0.0-1.8); Eosinophils # (Auto) 0.3 K/mm3 (0.0-0.4); Eosinophils % (Auto) 3.1 % (0.0-4.3); Hematocrit 36.5 % (30.3-42.9); Hemoglobin 11.9 gm/dl (10.1-14.3); Lymphocytes # (Auto) 3.4 K/mm3 (1.2-5.4); Lymphocytes % (Auto) 36.6 % (13.4-35.0); Mean Corpuscular HGB Conc 33 % (30-34); Mean Corpuscular Hemoglobin 28 pg (28-32); Mean Corpuscular Volume 85 fl (79-97); Monocytes # (Auto) 0.5 K/mm3 (0.0-0.8); Monocytes % (Auto) 5.2 % (0.0-7.3); Platelet Count 336 K/mm3 (140-440); Red Blood Count 4.28 M/mm3 (3.65-5.03); Red Cell Distribution Width 14.9 % (13.2-15.2)
[2017-12-02 15:32] LABS: BUN/Creatinine Ratio 22; Blood Urea Nitrogen 11 mg/dL (7-17); Calcium 9.4 mg/dL (8.4-10.2); Hemolysis Index 22
--- NOTE | 2017-12-02 15:50 | XRay Report ---
FINAL REPORT PROCEDURE: XR CHEST ROUTINE 2V TECHNIQUE: PA and lateral chest radiographs were obtained. CPT 99152 HISTORY: Chest Pain COMPARISON: No prior studies are available for comparison. FINDINGS: Heart: The heart is diffusely enlarged. Mediastinum/Vessels: Normal. Lungs/Pleural space: Minimal strandy densities were right and left lung bases, minimal basilar atelectasis suspected. No dense consolidations or effusions are seen.. Bony thorax: No acute osseous abnormality. Other: IMPRESSION: Mild diffuse cardiac enlargement. Minimal basilar atelectasis suspected. No other abnormalities are seen..
[2017-12-02] MEDS ORDERED: NORCO 5/325 PO ONE (15:58)
[2017-12-02] MEDS ORDERED: K-DUR PO ONE (15:58)
--- NOTE | 2017-12-02 15:58 | Emergency Department Report ---
ED Chest Pain HPI - General Chief Complaint: Chest Pain Stated Complaint: CHEST PAIN/UPPER BACK PAIN Time Seen by Provider: 12/02/17 14:34 Source: patient Mode of arrival: Ambulatory Limitations: No Limitations - History of Present Illness Initial Comments: 42-year-old female past medical history hypertension, history of chest pain, GERD, sleep apnea, migraines presents with complaint of one week of right upper chest pain radiating through upper back. Patient is awake alert and oriented 3 not in acute distress on my interview with her. States that pain is slightly diminished from when she was here arrived earlier today. He ascribes the pain as an aching which she feels may repeat radiating from her right upper chest to her back. Denies any upper or lower extremity paresthesias. Denies any dyspnea at rest or significant dyspnea with exertion. Eyes any palpitations. Patient is awake alert and oriented 3. Denies active chest pain at this time. States that she has been taking Tylenol at home with minimal relief of her symptoms. Patient was screened by Dr. Bryan earlier. Denies any personal history of PE or DVT. Denies fevers chills or cough. That it is slightly worse when she bends over or moves her trunk. MD Complaint: chest pain, other (back pain) Onset/Timin -: week(s) Onset: during rest Pain Location: right chest Pain Radiation: back Severity: moderate Severity scale (0 -10): 6 Quality: aching Consistency: intermittent Worsens With: movement Treatments Prior to Arrival: other (Tylenol) Aspirin use within the Past 7 Days: (0) No - Related Data Home Medications Medication Instructions Recorded Confirmed Last Taken Butalb/Acetaminophen/Caffeine 1 cap PO Q6HR PRN 10/12/17 10/13/17 Unknown [Fioricet 50-300-40 mg CAP] Metoclopramide [Reglan TAB] 10 mg PO BID 10/13/17 10/13/17 Unknown Previous Rx's Medication Instructions Recorded Last Taken Type Aspirin EC [Aspirin Enteric Coated 81 mg PO QDAY #30 tablet. 10/14/17 Unknown Rx TAB] Atenolol/Chlorthalidone [Tenoretic 1 tab PO QDAY #90 tablet 10/14/17 Unknown Rx 100-25] NIFEdipine XL [Procardia Xl] 90 mg PO QDAY #90 tablet 10/14/17 Unknown Rx cloNIDine [Catapres] 0.1 mg PO BID #60 tablet 10/14/17 Unknown Rx cloNIDine [Catapres] 0.2 mg PO BID #60 tablet 10/14/17 Unknown Rx traMADol [Ultram 50 MG tab] 50 mg PO Q6HR PRN #10 tablet 10/14/17 Unknown Rx Aspirin EC [Aspirin Enteric Coated 81 mg PO QDAY #30 tablet. 12/02/17 Unknown Rx TAB] Carvedilol [Coreg] 6.25 mg PO BID #60 tablet 12/02/17 Unknown Rx HYDROcodone/APAP 5-325 [[place] 1 each PO Q6HR PRN #10 tablet 12/02/17 Unknown Rx 5/325] Ibuprofen [Motrin] 400 mg PO Q8H PRN #15 tablet 12/02/17 Unknown Rx Allergies Allergy/AdvReac Type Severity Reaction Status Date / Time morphine AdvReac Headache Verified 05/05/17 12:41 Heart Score - HEART Score History: Moderately suspicious EKG: Normal Age: < 45 Risk factors: 1-2 risk factors Troponin: < normal limit HEART Score: 2 ED Review of Systems ROS: Stated complaint: CHEST PAIN/UPPER BACK PAIN Other details as noted in HPI Constitutional: denies: chills, fever Eyes: denies: eye pain, eye discharge, vision change ENT: denies: ear pain, throat pain Respiratory: denies: cough, shortness of breath, wheezing Cardiovascular: chest pain. denies: palpitations Endocrine: no symptoms reported Gastrointestinal: denies: abdominal pain, nausea, diarrhea Genitourinary: denies: urgency, dysuria, discharge Musculoskeletal: back pain. denies: joint swelling, arthralgia Skin: denies: rash, lesions Neurological: denies: headache, weakness, paresthesias Psychiatric: denies: anxiety, depression Hematological/Lymphatic: denies: easy bleeding, easy bruising ED Past Medical Hx - Past Medical History Hx Hypertension: Yes Hx Congestive Heart Failure: No Hx Diabetes: No Hx GERD: Yes Hx Headaches / Migraines: Yes Hx Asthma: No Hx COPD: No Additional medical history: GERD, sleep apnea - Surgical History Hx Cholecystectomy: Yes Hx Appendectomy: Yes Additional Surgical History: trach s/p ruptured appendex/procedure?(like tubal) but pt can't remember full details - Social History Smoking Status: Never Smoker Substance Use Type: None - Medications Home Medications: Home Medications Medication Instructions Recorded Confirmed Last Taken Type Butalb/Acetaminophen/Caffeine 1 cap PO Q6HR PRN 10/12/17 10/13/17 Unknown History [Fioricet 50-300-40 mg CAP] Metoclopramide [Reglan TAB] 10 mg PO BID 10/13/17 10/13/17 Unknown History Aspirin EC [Aspirin Enteric Coated 81 mg PO QDAY #30 tablet. 10/14/17 Unknown Rx TAB] Atenolol/Chlorthalidone [Tenoretic 1 tab PO QDAY #90 tablet 10/14/17 Unknown Rx 100-25] NIFEdipine XL [Procardia Xl] 90 mg PO QDAY #90 tablet 10/14/17 Unknown Rx cloNIDine [Catapres] 0.1 mg PO BID #60 tablet 10/14/17 Unknown Rx cloNIDine [Catapres] 0.2 mg PO BID #60 tablet 10/14/17 Unknown Rx traMADol [Ultram 50 MG tab] 50 mg PO Q6HR PRN #10 tablet 10/14/17 Unknown Rx Aspirin EC [Aspirin Enteric Coated 81 mg PO QDAY #30 tablet. 12/02/17 Unknown Rx TAB] Carvedilol [Coreg] 6.25 mg PO BID #60 tablet 12/02/17 Unknown Rx HYDROcodone/APAP 5-325 [[place] 1 each PO Q6HR PRN #10 tablet 12/02/17 Unknown Rx 5/325] Ibuprofen [Motrin] 400 mg PO Q8H PRN #15 tablet 12/02/17 Unknown Rx ED Physical Exam - General Limitations: No Limitations General appearance: alert, in no apparent distress - Head Head exam: Present: atraumatic, normocephalic - Eye Eye exam: Present: normal appearance, PERRL, EOMI - ENT ENT exam: Present: mucous membranes moist - Neck Neck exam: Present: normal inspection - Respiratory Respiratory exam: Present: normal lung sounds bilaterally. Absent: respiratory distress - Cardiovascular Cardiovascular Exam: Present: regular rate, normal rhythm. Absent: systolic murmur, diastolic murmur, rubs, gallop - GI/Abdominal GI/Abdominal exam: Present: soft, normal bowel sounds - Extremities Exam Extremities exam: Present: normal inspection - Back Exam Back exam: Present: normal inspection - Neurological Exam Neurological exam: Present: alert, oriented X3 - Psychiatric Psychiatric exam: Present: normal affect, normal mood - Skin Skin exam: Present: warm, dry, intact, normal color. Absent: rash ED Course Vital Signs 12/02/17 13:47 Temperature 98.3 F Pulse Rate 72 Respiratory 18 Rate Blood Pressure 159/84 O2 Sat by Pulse 96 Oximetry MELISSA score - Melissa Score Age > 65: (0) No Aspirin use within the Past 7 Days: (0) No 3 or more CAD Risk Factors: (0) No 2 or more Angina events in past 24 hrs: (1) Yes Known CAD with more than 50% Stenosis: (0) No Elevated Cardiac Markers: (0) No ST Deviation Greater than 0.5mm: (0) No MELISSA Score: 1 ED Medical Decision Making - Lab Data Result diagrams: 12/02/17 14:36 12/02/17 14:36 - Medical Decision Making A/P: Chest pain, musculoskeletal back 1-case discussed with Dr. Bryan before discharge. Refill patient's carvedilol prescription. I advised patient that she can obtain baby aspirin 81 mg over-the -counter. Heart score 2 points Low Score (0-3 points) Risk of MACE of 0.9-1.7%. D-dimer negative. Patient had a cardiac stress test that was unremarkable in October 2017. 2-Motrin low dose. Short course [place] 3-patient states she has follow-up with a lot worker on December 22. I advised her to some point for her to follow up as an outpatient. 4-vital signs stable before discharge Critical care attestation.: If time is entered above; I have spent that time in minutes in the direct care of this critically ill patient, excluding procedure time. ED Disposition Clinical Impression: Chest pain Qualifiers: Chest pain type: unspecified Qualified Code(s): R07.9 - Chest pain, unspecified Back pain Qualifiers: Back pain location: back pain in unspecified location Back pain laterality: unspecified Disposition: - TO HOME OR SELFCARE Is pt being admited?: No Does the pt Need Aspirin: No Condition: Stable Instructions: Chest Pain (ED), Back Pain (ED) Prescriptions: Aspirin EC [Aspirin Enteric Coated TAB] 81 mg PO QDAY #30 tablet. Carvedilol [Coreg] 6.25 mg PO BID #60 tablet HYDROcodone/APAP 5-325 [[place] 5/325] 1 each PO Q6HR PRN #10 tablet PRN Reason: Pain Ibuprofen [Motrin] 400 mg PO Q8H PRN #15 tablet PRN Reason: Pain , Severe (7-10) Referrals: [facility] [Provider Group] - 3-5 Days Forms: Work/School Release Form(ED) Time of Disposition: 16:01
[2017-12-02 16:20] VITALS: BP 171/96
== END 2017-12-02 16:20 | disposition home or self-care (01) ==
LOC: ED 13:31
DX: R07.89 Other chest pain (principal); I10 Essential (primary) hypertension; K21.9 Gastro-esophageal reflux disease without esophagitis; G43.909 Migraine, unspecified, not intractable, without status migrainosus; Z79.82 Long term (current) use of aspirin; Z88.6 Allergy status to analgesic agent
CPT/HCPCS: 36415; 71046; 80048; 83735; 84484; 84703; 85025; 85379; 93005; 93010; 96372; 99284; J1885